=== PATIENT | male | born 1960 | race Caucasian/White ===

== ENCOUNTER 2018-11-25 10:42 | Emergency (ER) | payer MEDICARE ==
[~2018-11-25] VITALS: Ht 172.7 cm; Wt 102.8 kg
[2018-11-25 12:01] LABS: BASOPHILS # (AUTO) 0.04 x10^3/uL (0-0.1); BASOPHILS % (AUTO) 1 % (0-1); EOSINOPHILS # (AUTO) 0.17 x10^3/uL (0-0.4); EOSINOPHILS % (AUTO) 3 % (1-7); LYMPHOCYTES # (AUTO) 1.68 x10^3/uL (1-3.4); LYMPHOCYTES % (AUTO) 28 % (22-44); MD NO; MEAN CORPUSCULAR HEMOGLOBIN 32.6 pg (27.5-34.5); MEAN CORPUSCULAR HGB CONC 33.8 g/dL (33.2-36.2); MEAN CORPUSCULAR VOLUME 96.4 fL (81-97); MONOCYTES # (AUTO) 0.38 x10^3/uL (0.2-0.8); MONOCYTES % (AUTO) 6 % (2-9); NEUTROPHILS # (AUTO) 3.75 x10^3/uL (1.8-6.8); NEUTROPHILS % (AUTO) 62 % (42-75); PLATELET COUNT 233 x10^3/uL (130-400); RED BLOOD COUNT 4.48 x10^6/uL (4.38-5.82)
--- NOTE | 2018-11-25 12:02 | NUR ---
PT TO ED FOR LRQ ABD PAIN AND LOWER RIGHT SIDED BACK PAIN X6 WEEKS. PT ALSO STATES PAIN WITH URINATION. PT CONNECTED TO MONITORS. VSS. AWAITING EDMD ASSESSMENT.
[2018-11-25 12:10] LABS: ALANINE AMINOTRANSFERASE 69 U/L (12-78); ALBUMIN 3.7 g/dL (3.4-5.0); ANION GAP 7 mmol/L (5-15); CALCIUM 8.9 mg/dL (8.5-10.1); CHLORIDE 105 mmol/L (98-107); CREATININE 1.06 mg/dL (0.7-1.3)
[2018-11-25 12:12] LABS: ALKALINE PHOSPHATASE 71 U/L (45-117); BILIRUBIN,TOTAL 0.6 mg/dL (0.2-1.0); TOTAL PROTEIN 7.6 g/dL (6.4-8.2)
[2018-11-25 13:01] LABS: MICROSCOPIC INDICATED
[2018-11-25 13:10] LABS: CULTURE INDICATED? YES
--- NOTE | 2018-11-25 13:11 | NUR ---
iv established. pt to ct at this time.
[2018-11-25] MEDS ORDERED: OMNIPAQUE 350 MG/ML, 100ML BOTTLE ONE (13:32)
--- NOTE | 2018-11-25 13:48 | NUR ---
PT RESTING IN ROOM. VSS. NO NEEDS EXPRESSED. ALL RESULTS BACK AT THIS TIME. CHART UP FOR RECEHCK.
[2018-11-25] MEDS ORDERED: OMEG-14 PO (14:00)
[2018-11-25] MEDS ORDERED: CHOL10003 PO (14:00)
[2018-11-25] MEDS ORDERED: OXYC10TA72 PO (14:00)
[2018-11-25] MEDS ORDERED: FLUTICASONE INH (14:00)
[2018-11-25] MEDS ORDERED: MULTIVITAMIN (14:00)
[2018-11-25] MEDS ORDERED: BETHAMETHASONE (14:00)
[2018-11-25] MEDS ORDERED: MULTIVITAMIN PO (14:00)
[2018-11-25] MEDS ORDERED: TADA5TAB2 PO (14:00)
[2018-11-25] MEDS ORDERED: METF500T17 PO (14:00)
[2018-11-25] MEDS ORDERED: LEVO200T5 PO (14:00)
[2018-11-25] MEDS ORDERED: CETI-237 PO (14:00)
[2018-11-25] MEDS ORDERED: [UNRECOGNIZED DRUG - OTHER] (14:00)
[2018-11-25] MEDS ORDERED: OXYC5CAP2 PO (14:00)
[2018-11-25] MEDS ORDERED: GLIM4TAB2 PO (14:00)
[2018-11-25] MEDS ORDERED: GABA300C10 PO (14:00)
[2018-11-25] MEDS ORDERED: ASCO500T8 PO (14:00)
[2018-11-25] MEDS ORDERED: IXEK80AU SC (14:00)
[2018-11-25] MEDS ORDERED: LISI-167 PO (14:00)
--- NOTE | 2018-11-25 14:14 | NUR ---
DR. BRIAN TO BS TO UPDATE ON POC. PLAN TO DC.
--- NOTE | 2018-11-25 14:24 | NUR ---
new orders received for kub. plan to dc after resutls.
[2018-11-25 14:55] VITALS: BP 111/67
--- NOTE | 2018-11-25 14:56 | NUR ---
PT BACK FROM IMAGING. PT RESTING IN ROOM WITH FAMILY AT BS. VSS. PT STATES 7/10 PAIN BUT DECLINED MEDICATION AT THIS TIME AND WOULD JUST LIKE TO GO HOME AND TAKE HIS OWN MEDICATION. AWAITING RESULTS AND DISPO.
== END 2018-11-25 15:12 | disposition home or self-care (01) ==
LOC: ED 12:45
DX: N13.2 Hydronephrosis with renal and ureteral calculous obstruction (principal); E11.9 Type 2 diabetes mellitus without complications
CPT/HCPCS: 36415; 74018; 74177; 80053; 81001; 83690; 85025; 87086; 99284; Q9967

== ENCOUNTER 2021-01-30 09:45 | Emergency (ER) | payer MEDICARE ==
[~2021-01-30] VITALS: Ht 172.7 cm; Wt 109.0 kg
[~2021-01-30 09:45] MED LIST: ASCO500T8 PO; BETHAMETHASONE; CETI-237 PO; CHOL10003 PO; FLUTICASONE INH; GABA300C10 PO; GLIM4TAB8 PO; IXEK80AU SC; LEVO200T5 PO; LISI-167 PO; METF500T17 PO; MULTIVITAMIN; MULTIVITAMIN PO; OMEG-14 PO; OXYC10TA72 PO; OXYC5CAP2 PO; TADA5TAB2 PO; [UNRECOGNIZED DRUG - OTHER]
[2021-01-30] MEDS ORDERED: SODIUM CHLORIDE 0.9% 1,000ML IVBOLUS ONE (10:30)
[2021-01-30 10:44] LABS: BASOPHILS % (AUTO) 0 % (0-1); EOSINOPHILS % (AUTO) 0 % (1-7); LYMPHOCYTES % (AUTO) 10 % (22-44); MEAN PLATELET VOLUME 7.9 fL (7.4-10.4); MONOCYTES % (AUTO) 7 % (2-9); NEUTROPHILS % (AUTO) 83 % (42-75); PLATELET COUNT 213 x10^3/uL (130-400); RED BLOOD COUNT 4.99 x10^6/uL (4.38-5.82); RED CELL DISTRIBUTION WIDTH 13.5 % (9.4-14.8)
[2021-01-30 10:54] LABS: ALANINE AMINOTRANSFERASE 39 U/L (12-78); ALBUMIN 2.8 g/dL (3.4-5.0); ANION GAP 11 mmol/L (5-15); CALCIUM 8.4 mg/dL (8.5-10.1); CHLORIDE 101 mmol/L (98-107); CREATININE 1.16 mg/dL (0.7-1.3)
[2021-01-30 10:57] LABS: ALKALINE PHOSPHATASE 46 U/L (45-117); BILIRUBIN,TOTAL 0.5 mg/dL (0.2-1.0); TOTAL PROTEIN 7.8 g/dL (6.4-8.2); TROPONIN I < 0.015 ng/mL (0.000-0.045)
--- NOTE | 2021-01-30 10:57 | NUR ---
60 y/o male bib SO for low 02 sats at home. pt sick for 7 days. pts 14 days post covid + test. pt on monitor 02 and IV started. Pt resp unlabored but diaphoretic and freq productive cough. pt non Vac
[2021-01-30] MEDS ORDERED: DOXYCYCLINE 100 MG in DEXTROSE 5% 250 ML IV SCH (11:30)
[2021-01-30] MEDS ORDERED: CEFTRIAXONE 1,000 MG in DEXTROSE 5% 50 ML IVPB ONE (11:30)
[2021-01-30] MEDS ORDERED: DEXAMETHASONE 4 MG/ML, 1ML IVPush ONE (12:30)
--- NOTE | 2021-01-30 12:30 | NUR ---
PT ENOCH IV ABX WELL. NO COMPLAINTS. PT DESATS WITH MOVEMENT. PTS AT BEDSIDE
--- NOTE | 2021-01-30 13:40 | NUR ---
PT HAD 84% ROOM AIR OXYGEN SATURATION WHILE PEFORMING MOVEMENT - STANDING UP AND SITTING DOWN
--- NOTE | 2021-01-30 14:07 | NUR ---
FAXED DOCUMENTS TO [facility]. CALLED FOR FOLLOW UP. ON HOLD "44 MINUTE WAIT TIME"
[2021-01-30] MEDS ORDERED: DEXAMETHASONE 4 MG/ML, 1ML ONE (14:11)
--- NOTE | 2021-01-30 15:20 | NUR ---
PT GIVEN [facility] INFORMATION AND EDUCATED ON THE NEED TO CALL [facility] TO ENSURE HE GETS A O2 TANK WITH A CONCENTRATOR DELE[employer]D TO HIS HOUSE. PT AND PT VERBALIZED UNDERSTANDING
[2021-01-30 15:53] VITALS: BP 117/57
--- NOTE | 2021-01-30 15:54 | NUR ---
PT DC HOME WITH AND HOME O2. PT AMBULATED TO WITHOUT DIFFICULTY. PT HAS HOME O2 AND IS ON PHONE WITH HOME O2 COMPANY
== END 2021-01-30 15:52 ==
LOC: ED 12:15
DX: J12.9 Viral pneumonia, unspecified (principal); R09.02 Hypoxemia; Z20.822 Contact with and (suspected) exposure to COVID-19; E11.9 Type 2 diabetes mellitus without complications; L40.50 Arthropathic psoriasis, unspecified
CPT/HCPCS: 36415; 71045; 80053; 83605; 84145; 84484; 85025; 87040; 93005; 96361; 96365; 96366; 96368; 96375; 99285; J0696; J1100; J7030; J7060